=== PATIENT | male | born 1955 | race Caucasian/White ===

== ENCOUNTER → 2022-03-20 | Outpatient (CLI) | payer MEDICARE ==
[~2022-03-20] MED LIST: ATECHL PO; ATEN50 PO; BUSP10 PO; CLON.5 PO; DEPAKOTE; FOLIC ACID; HYDACE5 PO; LEXAPRO; MAGNESIUM OXIDE; MELO7.5 PO; MIRT15 PO; NAPR500 PO; PROTONIX; TAMS.4ER PO
[2022-03-20 19:30] LABS: BASOPHILS PERCENT AUTO 1 % (0-2); EOSINOPHILS ABSOLUTE AUTO 0.33 K/mm3 (0.00-0.68); EOSINOPHILS PERCENT AUTO 3 % (0-6); Hematocrit 40.1 % (37.0-53.0); Hemoglobin 13.2 g/dL (13.5-17.5); IMMATURE GRAN ABSOLUTE AUTO 0.05 K/mm3 (0.00-0.10); IMMATURE GRAN PERCENT AUTO 1 % (0-1); LYMPHOCYTES ABSOLUTE AUTO 1.78 K/mm3 (0.84-5.20); LYMPHOCYTES PERCENT AUTO 16 % (21-46); MONOCYTES ABSOLUTE AUTO 0.88 K/mm3 (0.16-1.47); MONOCYTES PERCENT AUTO 8 % (4-13); Mean Corpuscular HGB 27.4 pg (26.0-34.0); Mean Corpuscular HGB Conc 32.9 g/dL (31.5-36.5); Mean Corpuscular Volume 83 fL (80-100); Mean Platelet Volume 10.1 fL (9.1-12.4); NEUTROPHILS ABSOLUTE AUTO 7.81 K/mm3 (1.96-9.15); NEUTROPHILS PERCENT AUTO 71 % (41-73); Platelet Count 337 K/mm3 (150-400); RDW Standard Deviation 39.4 fL (35.1-46.3); Red Blood Cell Count 4.82 M/mm3 (4.30-5.90); White Blood Cell Count 10.95 K/mm3 (4.00-11.30)
[2022-03-20 20:08] LABS: Alanine Aminotransfer (ALT/SGP 112 U/L (12-78); Albumin, Blood 3.8 g/dL (3.4-5.0); Alk Phos 98 U/L (50-136); Anion Gap 7 mmol/L (6-16); Aspartate Aminotrans (AST/SGOT 24 U/L (12-37); Bilirubin, Total 0.5 mg/dL (0.1-1.0); Blood Urea Nitrogen 15 mg/dL (8-24); Bun/Creatinine Ratio 22.2 (12.0-20.0); CO2, Blood 28 mmol/L (21-32); Calcium, Blood 9.6 mg/dL (8.5-10.1); Chloride, Blood 98 mmol/L (98-108); Creatinine, Blood 0.68 mg/dL (0.60-1.20); Globulin, Blood 3.9 g/dL (2.2-4.0); Glomerular Filtration Rate 102 (60-); Glucose, Blood 105 mg/dL (70-99); PSA, %Free 8.2 %; Potassium, Blood 3.7 mmol/L (3.5-5.5); Sodium, Blood 133 mmol/L (136-145); Total Protein, Blood 7.7 g/dL (6.4-8.2)
== END | disposition home or self-care (01) ==
LOC: LAB 17:13 → LAB SHORT 17:13
PROVIDERS: Family Medicine
DX: Z13.1 Encounter for screening for diabetes mellitus (principal); I10 Essential (primary) hypertension; N40.0 Benign prostatic hyperplasia without lower urinary tract symptoms; R73.09 Other abnormal glucose; R97.20 Elevated prostate specific antigen [PSA]
CPT/HCPCS: 80053; 83036; 84153; 84154; 85025

== ENCOUNTER 2022-12-16 19:29 | Emergency (ER) | payer MEDICARE ==
[~2022-12-16] VITALS: Ht 182.9 cm; Wt 99.8 kg
[2022-12-17 00:27] LABS: BASOPHILS ABSOLUTE AUTO 0.06 K/mm3 (0.00-0.23); BASOPHILS PERCENT AUTO 0 % (0-2); EOSINOPHILS ABSOLUTE AUTO 0.08 K/mm3 (0.00-0.68); EOSINOPHILS PERCENT AUTO 1 % (0-6); Hematocrit 40.4 % (37.0-53.0); Hemoglobin 14.2 g/dL (13.5-17.5); IMMATURE GRAN ABSOLUTE AUTO 0.07 K/mm3 (0.00-0.10); IMMATURE GRAN PERCENT AUTO 1 % (0-1); LYMPHOCYTES ABSOLUTE AUTO 1.25 K/mm3 (0.84-5.20); LYMPHOCYTES PERCENT AUTO 8 % (21-46); MONOCYTES ABSOLUTE AUTO 1.05 K/mm3 (0.16-1.47); MONOCYTES PERCENT AUTO 7 % (4-13); Mean Corpuscular HGB Conc 35.1 g/dL (31.5-36.5); Mean Corpuscular Volume 80 fL (80-100); Mean Platelet Volume 9.4 fL (9.1-12.4); NEUTROPHILS ABSOLUTE AUTO 12.67 K/mm3 (1.96-9.15); NEUTROPHILS PERCENT AUTO 84 % (41-73); Platelet Count 323 K/mm3 (150-400); RDW Coefficient Variation 12.6 % (11.7-14.2); RDW Standard Deviation 36.1 fL (35.1-46.3); Red Blood Cell Count 5.08 M/mm3 (4.30-5.90); White Blood Cell Count 15.18 K/mm3 (4.00-11.30)
[2022-12-17 00:45] LABS: Albumin, Blood 4.1 g/dL (3.4-5.0); Albumin/Globulin Ratio 0.9 (0.8-1.8); Bilirubin, Total 0.6 mg/dL (0.1-1.0); Bun/Creatinine Ratio 14.9 (12.0-20.0); Creatinine, Blood 0.94 mg/dL (0.60-1.20); Globulin, Blood 4.4 g/dL (2.2-4.0); Potassium, Blood 3.3 mmol/L (3.5-5.5); Total Protein, Blood 8.5 g/dL (6.4-8.2)
== END 2022-12-17 05:10 | disposition home or self-care (01) ==
LOC: ER 19:29
PROVIDERS: Student in an Organized Health Care Education/Training Program
DX: R13.10 Dysphagia, unspecified (principal); I10 Essential (primary) hypertension; Z79.899 Other long term (current) drug therapy
CPT/HCPCS: 36415; 70360; 70491; 80053; 85025; 93005; 93010; 99284-25; J7030; Q9967

== ENCOUNTER → 2022-12-25 | Outpatient (CLI) | payer MEDICARE ==
[2022-12-25 19:41] LABS: BASOPHILS ABSOLUTE AUTO 0.09 K/mm3 (0.00-0.23); BASOPHILS PERCENT AUTO 1 % (0-2); EOSINOPHILS ABSOLUTE AUTO 0.27 K/mm3 (0.00-0.68); EOSINOPHILS PERCENT AUTO 3 % (0-6); Hematocrit 39.3 % (37.0-53.0); Hemoglobin 13.2 g/dL (13.5-17.5); IMMATURE GRAN ABSOLUTE AUTO 0.03 K/mm3 (0.00-0.10); IMMATURE GRAN PERCENT AUTO 0 % (0-1); LYMPHOCYTES ABSOLUTE AUTO 1.07 K/mm3 (0.84-5.20); LYMPHOCYTES PERCENT AUTO 13 % (21-46); MONOCYTES ABSOLUTE AUTO 0.61 K/mm3 (0.16-1.47); MONOCYTES PERCENT AUTO 7 % (4-13); Mean Corpuscular HGB 27.6 pg (26.0-34.0); Mean Corpuscular HGB Conc 33.6 g/dL (31.5-36.5); Mean Corpuscular Volume 82 fL (80-100); Mean Platelet Volume 10.1 fL (9.1-12.4); NEUTROPHILS ABSOLUTE AUTO 6.38 K/mm3 (1.96-9.15); NEUTROPHILS PERCENT AUTO 75 % (41-73); Platelet Count 329 K/mm3 (150-400); RDW Coefficient Variation 12.2 % (11.7-14.2); RDW Standard Deviation 37.2 fL (35.1-46.3); Red Blood Cell Count 4.79 M/mm3 (4.30-5.90); White Blood Cell Count 8.45 K/mm3 (4.00-11.30)
[2022-12-25 20:55] LABS: Bun/Creatinine Ratio 20.3 (12.0-20.0); Calcium, Blood 9.6 mg/dL (8.5-10.1); Creatinine, Blood 0.79 mg/dL (0.60-1.20); Potassium, Blood 3.8 mmol/L (3.5-5.5)
== END | disposition home or self-care (01) ==
LOC: LAB SHORT 16:35
PROVIDERS: Family Medicine
DX: E87.1 Hypo-osmolality and hyponatremia (principal)
CPT/HCPCS: 80048; 85025

== ENCOUNTER 2025-05-09 09:36 | Inpatient (IN) | payer MEDICARE ==
[~2025-05-09] VITALS: Ht 177.8 cm; Wt 82.5 kg
[2025-05-09] VITALS (9 sets, daily range): BP systolic 98–153; BP diastolic 60–87
[2025-05-09] MEDS ORDERED: CYCL10 PO (09:56)
[2025-05-09] MEDS ORDERED: TRAZ50 PO (09:56)
[2025-05-09] MEDS ORDERED: Venlafaxine HCl75 MG PO (09:57)
[2025-05-09] MEDS ORDERED: Morphine Sulfate 4 MG/1 ML Injection IV ONE (10:30)
[2025-05-09] MEDS ORDERED: NS 500 ML IV SCH (10:35)
[2025-05-09 10:59] LABS: BASOPHILS ABSOLUTE AUTO 0.03 K/mm3 (0.00-0.23); BASOPHILS PERCENT AUTO 0 % (0-2); EOSINOPHILS ABSOLUTE AUTO 0.01 K/mm3 (0.00-0.68); EOSINOPHILS PERCENT AUTO 0 % (0-6); IMMATURE GRAN ABSOLUTE AUTO 0.09 K/mm3 (0.00-0.10); IMMATURE GRAN PERCENT AUTO 1 % (0-1); LYMPHOCYTES ABSOLUTE AUTO 0.24 K/mm3 (0.84-5.20); LYMPHOCYTES PERCENT AUTO 1 % (21-46); MONOCYTES ABSOLUTE AUTO 0.26 K/mm3 (0.16-1.47); MONOCYTES PERCENT AUTO 2 % (4-13); Mean Corpuscular HGB Conc 29.1 g/dL (31.5-36.5); Mean Corpuscular Volume 65 fL (80-100); NEUTROPHILS ABSOLUTE AUTO 16.43 K/mm3 (1.96-9.15); NEUTROPHILS PERCENT AUTO 96 % (41-73); NRBC ABSOLUTE 0.00 K/mm3 (0.00-0.02); NRBC Auto 0.0 /100 WBC (0.0-0.2); Platelet Count 270 K/mm3 (150-400); RDW Coefficient Variation 17.3 % (11.7-14.2); RDW Standard Deviation 40.7 fL (35.1-46.3)
[2025-05-09 11:01] LABS: Hematocrit 15.8 % (37.0-53.0); Hemoglobin 4.6 g/dL (13.5-17.5)
[2025-05-09 11:12] LABS: Prothrombin Time Results 13.4 Sec (9.7-11.5)
[2025-05-09 11:30] LABS: Alanine Aminotransfer (ALT/SGP 14.0 U/L (12-78); Albumin, Blood 3.5 g/dL (3.4-5.0); Albumin/Globulin Ratio 1.0 (0.8-1.8); Anion Gap 8.0 mmol/L (3-11); Aspartate Aminotrans (AST/SGOT 7.0 U/L (12-37); Bilirubin, Total 0.3 mg/dL (0.1-1.0); Blood Urea Nitrogen 20.0 mg/dL (8-24); CO2, Blood 27.0 mmol/L (21-32); Calcium, Blood 8.4 mg/dL (8.5-10.1); Chloride, Blood 101.0 mmol/L (98-108); Creatinine, Blood 0.83 mg/dL (0.60-1.20); Globulin, Blood 3.4 g/dL (2.2-4.0); Glucose, Blood 115.0 mg/dL (70-99); Potassium, Blood 3.4 mmol/L (3.5-5.5); Sodium, Blood 133.0 mmol/L (136-145); Total Protein, Blood 6.9 g/dL (6.4-8.2)
[2025-05-09 12:04] LABS: Source, Urine Clean Catch
[2025-05-09 12:28] LABS: Glucose Qualitative, Urine Neg (Neg); Ketones, Urine 2+ (Neg); Leukocyte Esterase, Urine 1+ (Neg); Protein, Urine 2+ (Neg); Specific Gravity, Urine 1.010 (1.003-1.022); Urobilinogen, Urine 2+ (Normal)
[2025-05-09 13:16] LABS: Bilirubin, Urine 2+ (Neg); Color, Urine Orange (P-Yellow)
[2025-05-09 13:19] LABS: Red Blood Cells, Urine 0-2 /hpf (0-2)
[2025-05-09] MEDS ORDERED: CefTRIAXone Sodium 2,000 MG in NS 100 ML IV ONE (13:25)
[2025-05-09] MEDS ORDERED: Potassium Chl 20MEQ/Water100ML 100 ML IV STA (14:15)
[2025-05-09] MEDS ORDERED: HYDROmorphone HCl/Pf 1MG SYR IV PRN ×2 (14:30→15:05)
[2025-05-09] MEDS ORDERED: Pantoprazole Sodium 40 MG Injection IV ONE (15:00)
[2025-05-09] MEDS ORDERED: NS 250 ML IV PRN (17:15)
[2025-05-09 18:01] LABS: Hematocrit 19.9 % (37.0-53.0); Hemoglobin 6.0 g/dL (13.5-17.5)
--- NOTE | 2025-05-09 18:37 | NUR ---
SHIFT SUMMARY; ASSUMED CARE AT 0700. A/A/OX4. CIWA <4 T/O SHIFT. YELLING AT STAFF T/O SHIFT. ATTEMPTED MULTIPLE TIMES TO EDUCATE ON CIWA AND SAFTEY. TELLS THIS RN TO SHUT UP. POINTS FINGER AT ME MULTIPLE TIMES T/O SHIFT YELLING THAT WAS CALLED A "ASS". ATTEMPTED TO DISCUSS WITH PT THAT MULTIPLE RN'S HAVE BEEN INVOLVED IN CARE AND THAT I CAME ON SHIFT THIS AM. CONTINUED TO YELL THAT WILL BE TAKING ME TO COURT AND I CAN TELL IT TO THE . 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 DEMANDS ATIVAN FOR ETOH WITHDRAWL DISPITE NOT MEETING CIWA CRITERIA. DISCUSSED WITH DR. DAWSON, ORDER GIVEN FOR ATIVAN FOR AGITATION. IN ROOM TO MEDICATE WITH THE ORDERED ATIVAN, PT REFUSED AND YELLS "A HALF MILIGRAM WON'T DO SHIT". ATTEMPTED TO DISCUSS THE DOSE AND CONCERN, YELLS "DON'T TREAT ME LIKE I'M A FUCKING IDIOT, I'VE BEEN TAKING IT FOR YEARS". REFUSES DINNER TIME CREON, THEN WHEN ATTEMPTED TO LEAVE ROOM YELLS, "YES I WANT MY FUCKING CREON, I DIDN'T SAY i DIDN'T WANT IT". ASK PT MULTIPLE TIMES TO NOT YELL AND CUSS AT ME, STATES CAN DO WHAT HE WANTS AND IS SICK OF ALL THESE FEMALE NURSES ACTING LIKE BITCHES. MOVES SELF ON BED, FEEDS SELF, USES URINAL. WILL CONTINUE TO MONITOR AND TREAT UNTIL REPORT GIVEN TO NOC SHIFT RN TO ASSUME CARE.
--- NOTE | 2025-05-09 18:55 | NUR ---
ASSUMED CARE FROM ED AT APPROX 1630. A/A/OX4, TRANFERS WITH SBA FROM [facility] TO BED. 1ST UNIT OF PRBC INFUSING ON ARRIVAL. 2ND UNIT STARTED AT 1845. REPORT TO CONNIE CHAPMAN TO ASSUME CARE.
[2025-05-09] MEDS ORDERED: LOSARTAN-HCTZ1 EAC6 PO (19:38)
[2025-05-09] MEDS ORDERED: ALBU90OI INH (20:36)
[2025-05-09] MEDS ORDERED: BUDESONIDE-FO10.2 G2 INH (20:37)
[2025-05-09] MEDS ORDERED: Pantoprazole Sodium 40 MG Injection IV SCH (21:00)
[2025-05-09] MEDS ORDERED: Lactobacil 2-S.Thermo-Bifido 1 1 Cap PO SCH (21:00)
--- NOTE | 2025-05-09 21:01 | NUR ---
ASSUMPTION OF CARE THIS RN ASSUMED CARE OF PATIENT AT 1900. BEDSIDE SHIFT REPORT DONE WITH FORREST CHAPMAN. PER PREVIOUS DAYSHIFT RN FORREST, THERE WAS SOME CONCERN REGARDING TRANSFUSION OF BLOOD AND PT SPIKING A FEVER. MD HU AWARE AND WAS NOTIFIED. PER MD HU THERE IS LOW SUSPICION OF TRANSFUSION REACTION AT THIS TIME AND LIKELY D/T PT'S CURRENT UTI. AT TIME OF SHIFT CHANGE PT'S ORAL TEMP WAS 98.0. PT DENIES CHEST PAIN/PRESSURE AND SOB. REPORTS HE IS FEELING BETTER SINCE TRANSFUSIONS. CONTINUES TO HAVE SMALL AMOUNT OF INCONTINENT RED/PINK STOOL. DENIES N/V. MID/LOW ABDOMINAL PAIN NOTED. MEDICATING PER EMAR. OTHERWISE VITAL'S STABLE ON RA. BP STABLE. ST 100-110'S. REPORTED IMPROVEMENT IN COLOR SINCE ARRIVAL TO UNIT. PT IS ALMOST DONE WITH SECOND UNIT OF PRBC'S AND WILL RECEIVE X1 MORE BEFORE RECHECKING H&H. BED IN LOWEST POSITION AND CALL LIGHT WITHIN REACH. PT CALLING APPROPRIATELY AT THIS TIME.
[2025-05-09] MEDS ORDERED: Albuterol 2.5 MG/3 ML VIAL INH PRN (21:15)
[2025-05-09] MEDS ORDERED: Albuterol HFA200 ACT/6.7 GM INH INH PRN (21:20)
[2025-05-10] VITALS (14 sets, daily range): BP systolic 104–152; BP diastolic 59–96
[2025-05-10 01:45] LABS: Hematocrit 21.7 % (37.0-53.0); Hemoglobin 6.7 g/dL (13.5-17.5)
[2025-05-10] MEDS ORDERED: NS 500 ML IV SCH (02:45)
[2025-05-10 04:21] LABS: Hematocrit 22.5 % (37.0-53.0); Hemoglobin 7.1 g/dL (13.5-17.5); Mean Corpuscular HGB Conc 31.6 g/dL (31.5-36.5); NRBC ABSOLUTE 0.00 K/mm3 (0.00-0.02); NRBC Auto 0.0 /100 WBC (0.0-0.2); Platelet Count 219 K/mm3 (150-400); RDW Coefficient Variation 20.0 % (11.7-14.2); RDW Standard Deviation 50.6 fL (35.1-46.3)
[2025-05-10 04:26] LABS: Mean Corpuscular Volume 70 fL (80-100)
--- NOTE | 2025-05-10 04:33 | NUR ---
SHIFT SUMMARY SEE PREVIOUS NOTE RECHECKED H&H PER MD ORDER 1 HOUR POST 3RD UNIT OF PRBC'S. NOTED HGB WAS 6.7. CALLED MD YEN WITH ORDER TO TRANSFUSE X1 PRBC'S. SR WITH PAC'S NOTED ON MONITOR. OCCASIONAL TACHYCARDIA WITH PAIN. PT NOTED TO DESAT OCCASIONALLY WHEN IN PAIN AND HOLDING BREATH. HOME INHALERS ORDERED PER RT PROTOCOL. LUNG SOUNDS CLEAR T/O. BP SOFT AT TIMES BUT MAP REMAINED >65. INFUSING BLOOD PER ORDER AT THIS TIME. ON 2L VIA NC FOR OCCASIONAL DESATS WITH PAIN AND WITH PAIN MEDS. MEDICATING Q2HRS PER ORDER AND PT REQUEST FOR ABDOMINAL PAIN. INCONTINENT MUCOUSY BLOODY STOOLS NOTED. STRAIGHT CATH PERFORMED EARLIER THIS SHIFT. PT CALLING APPROPRIATELY. A&O X4. BED IN LOWEST POSITION AND CALL LIGHT WITHIN REACH. THIS RN WILL REPORT TO ONCOMING DAYSHIFT RN.
[2025-05-10 04:41] LABS: Alanine Aminotransfer (ALT/SGP 16.0 U/L (12-78); Albumin, Blood 3.1 g/dL (3.4-5.0); Albumin/Globulin Ratio 0.9 (0.8-1.8); Anion Gap 8.0 mmol/L (3-11); Aspartate Aminotrans (AST/SGOT 33.0 U/L (12-37); Bilirubin, Total 1.0 mg/dL (0.1-1.0); Blood Urea Nitrogen 13.0 mg/dL (8-24); CO2, Blood 26.0 mmol/L (21-32); Calcium, Blood 7.8 mg/dL (8.5-10.1); Chloride, Blood 104.0 mmol/L (98-108); Creatinine, Blood 0.79 mg/dL (0.60-1.20); Globulin, Blood 3.4 g/dL (2.2-4.0); Glucose, Blood 140.0 mg/dL (70-99); Potassium, Blood 3.2 mmol/L (3.5-5.5); Sodium, Blood 135.0 mmol/L (136-145); Total Protein, Blood 6.5 g/dL (6.4-8.2)
[2025-05-10 04:46] LABS: BAND PERCENT MAN 5 % (0-8); BASOPHILS ABSOLUTE MAN 0.00 K/mm3 (0.00-0.23); BASOPHILS PERCENT MAN 0 % (0-2); EOSINOPHILS ABSOLUTE MAN 0.00 K/mm3 (0.00-0.68); EOSINOPHILS PERCENT MAN 0 % (0-6); LYMPHOCYTES ABSOLUTE MAN 0.63 K/mm3 (0.84-5.20); LYMPHOCYTES PERCENT MAN 2 % (21-46); MONOCYTES ABSOLUTE MAN 0.94 K/mm3 (0.16-1.47); MONOCYTES PERCENT MAN 3 % (4-13); NEUTROPHILS ABSOLUTE MAN 30.02 K/mm3 (1.96-9.15); SEG NEUTROPHILS PERCENT MAN 90 % (41-73)
[2025-05-10 08:22] LABS: Hematocrit 23.7 % (37.0-53.0); Hemoglobin 7.6 g/dL (13.5-17.5)
[2025-05-10 09:10] LABS: Ferritin, Serum 17.0 ng/mL (26-388); Total Iron Binding Capacity 409.0 ug/dL (250-450)
--- NOTE | 2025-05-10 09:53 | NUR ---
"Spiritual care | Pt. Request Pt. is awake in his bed when he we welcomes my visit. Spouse is at bedside. Pt. displays evidence of being guarded and a little anxious at first. As a life review is facilitated the Pt. a decrease in anxiety could be observed. Through theraputic listening and a calming presence the Pt. welcomed prayer. Prayed with the Pt. Pt. verbalized gratitude for the spiritual care visit."
[2025-05-10] MEDS ORDERED: Sod Ferric Gluc Complx/Sucrose 125 MG in NS 100 ML IV SCH (12:00)
[2025-05-10] MEDS ORDERED: CefTRIAXone Sodium 2,000 MG in NS 100 ML IV SCH (12:00)
[2025-05-10 12:39] LABS: C DIFFICILE DNA NEGATIVE (Negative)
[2025-05-10] MEDS ORDERED: Formoterol/Mometasone MDI 5/200 mcg 13 GM INH SCH (12:55)
[2025-05-10 17:51] LABS: Hematocrit 23.9 % (37.0-53.0); Hemoglobin 7.4 g/dL (13.5-17.5)
--- NOTE | 2025-05-10 18:34 | NUR ---
SHIFT SUMMARY; ASSUMED CARE AT 0700, A/A/OX4 DURING SHIFT. SBA TO BATHROOM. KATHY RED RECTAL BLEEDING INTERMITANTLY DURING SHIFT. VSS, COOPERATIVE WITH CARE. PENDING COBRA TRANSFER, WILL REPORT TO NOC SHIFT RN TO ASSUME CARE UNTIL TRANSFER.
--- NOTE | 2025-05-10 21:51 | NUR ---
ASSUMPTION OF CARE/PATIENT UPDATE THIS RN ASSUMED CARE OF PATIENT AT 1900. PT WITH HR 130'S AT TIME OF SHIFT CHANGE. INCREASED TO 160'S WITH EXERTION. ON 2L VIA NC. BP STABLE. AFEBRILE. GARCÍA CATHETER DRAINING TO GRAVITY. PT TO BE COBRA TRANSFERRED NORTH FOR GI. PRIOR TO TRANSPORT ARRIVING FOR PATIENT, MD HU SPOKE TO CAT BREEDER REGARDING HR AND WANTING PT TO RECEIVE ANOTHER UNIT OF PRBC'S AFTER PT HAD A MEDIUM RUST/RED BM. BLOOD TRANSFUSING AT THIS TIME. PT DENIES CHEST PAIN/PRESSURE/SOB. AFEBRILE. HR REMAINS IN THE 120-130'S. PT BEDREST AT THIS TIME. FAMILY AT BEDSIDE. AWAITING TRANSPORT.
[2025-05-10 21:55] LABS: Hematocrit 23.8 % (37.0-53.0); Hemoglobin 7.5 g/dL (13.5-17.5)
--- NOTE | 2025-05-10 22:49 | NUR ---
TRANSFER NOTE PT TAKEN VIA EMS TRANSPORT TO [facility]. PT GETTING TRANSFUSION AT TIME OF TRANSPORT. REPORT GIVEN TO SPRAY OPERATOR. NO S/S OF DISTRESS NOTED AT TIME OF TRANSFER. PT PIVOT TRANSFERRED TO [facility] FROM BED. ON 2L VIA NC. BP STABLE. AFEBRILE. SEE TRANSFUSION DOCUMENTATION UP TO POINT OF PATIENT TRANSFER/DISCHARGE. FAMILY IN ROOM AT TIME OF TRANSFER AND ARE AWARE OF PLAN OF CARE.
== END 2025-05-10 22:35 | disposition short-term general hospital (02) | DRG 393 ==
LOC: ER 09:36 → PCU 14:11
PROVIDERS: Student in an Organized Health Care Education/Training Program; ADMIT Student in an Organized Health Care Education/Training Program
PROC: 30233N1 Transfusion of Nonautologous Red Blood Cells into Peripheral Vein, Percutaneous Approach (ICD-10-PCS; principal; 2025-05-09)
PROC: 3E03329 Introduction of Other Anti-infective into Peripheral Vein, Percutaneous Approach (ICD-10-PCS; 2025-05-09)
PROC: 0T9B70Z Drainage of Bladder with Drainage Device, Via Natural or Artificial Opening (ICD-10-PCS; 2025-05-10)
DX: K62.7 Radiation proctitis (principal); J96.01 Acute respiratory failure with hypoxia; D62 Acute posthemorrhagic anemia; K92.2 Gastrointestinal hemorrhage, unspecified; E87.1 Hypo-osmolality and hyponatremia; I10 Essential (primary) hypertension; M10.9 Gout, unspecified; D64.9 Anemia, unspecified; E87.6 Hypokalemia; F41.9 Anxiety disorder, unspecified; K59.00 Constipation, unspecified; N28.9 Disorder of kidney and ureter, unspecified; I48.91 Unspecified atrial fibrillation; N40.1 Benign prostatic hyperplasia with lower urinary tract symptoms; R33.8 Other retention of urine; R00.0 Tachycardia, unspecified; Z85.46 Personal history of malignant neoplasm of prostate; Z88.8 Allergy status to other drugs, medicaments and biological substances; Z79.899 Other long term (current) drug therapy
CPT/HCPCS: 36415; 36430; 51798; 71045; 74177; 80053; 81001; 82272; 82607; 82728; 82746; 83540; 83550; 83880; 85014; 85018; 85025; 85610; 85730; 86850; 86900; 86901; 86920; 86923; 87086; 87493; 94640; 94664; 94760; 94762; 96365-59; 96375; 97161; 97165; 97530; 97535; 99285-25; A9270; J0696; J1171; J2270; J2470; J2916; J3480; J7030; J7040; J7050; P9016; Q9967

== ENCOUNTER → 2025-06-22 | Outpatient (CLI) | payer MEDICARE ==
[~2025-06-22] MED LIST changes: +ALBU90OI INH; +BUDESONIDE-FO10.2 G2 INH; +CYCL10 PO; +LOSARTAN-HCTZ1 EAC6 PO; +TRAZ50 PO; +Venlafaxine HCl75 MG PO
== END ==
LOC: LAB SHORT 20:05 → LAB 20:05
DX: N39.0 Urinary tract infection, site not specified (principal)
CPT/HCPCS: 87077; 87086; 87186